=== PATIENT | male | born 1950 | race Caucasian/White ===

== ENCOUNTER → 2016-08-20 | Outpatient (CLI) | payer OTHER ==
[~2016-08-20] MED LIST: ALBUTEROL17 GM INH; ALBUTEROL20 ml INH; BUSPAR15 M1 PO; FISH OIL 1,2001 EACH PO; FLUTICASONE P15.8 ML; IRON SUPPLEMENT1 TAB PO; LISINOPRIL-HCTZ1 T21 PO; MULTI-VITAMIN1 EAC1 PO; NAPROSYN500 MG PO; NORVASC10 MG PO; PAMELOR50 MG PO; PRAVASTATIN SOD40 MG PO; PRILOSEC20 M1 PO; SINGULAIR PO; VIAGRA PO
--- NOTE | ~2016-08-20 | CT5 ---
[facility] A Service of [facility] & [facility] RADIOLOGY TEXT RESULTS PATIENT: STEPH CLARK LOCATION: [facility] : 46 UNIT #: [id number] AGE: [address]: Nicholas May MD SEX: M ORDER DR: [id number] [facility] [address] [place], [place] [address] [id number] O MR#: [id number] [facility] #: [id number] NAME: STEPH CLARK : 1950 SEX: M STUDY DATE/TIME: 08/20/2016 8:28 UNIT: [facility] ROOM: STUDY DESCRIPTION: CT Abdomen W Cont Attending Physician: Nicholas May M.D., Ph.D. Referring Physician: Nicholas May M.D., Ph.D. Ordering Physician: Nicholas May M.D., Ph.D. Primary Care Physician: Farrukh Dickens M.D. MEDICAL IMAGING REPORT This report is preliminary unless electronic signature is present EXAM CT abdomen with contrast, 08/20/2016 INDICATION 66-year-old male with a history of lung cancer, cough and congestion for 2 weeks followup. Chemotherapy and radiation therapy for May through July of this year. Observation for suspected malignant neoplasm and active malignancy. TECHNIQUE Contrast-enhanced CT of the abdomen with contrast. Correlation is made with PET CT at an outside facility performed 02/18/2016. This CT exam was performed with one or more of the following radiation dose reduction techniques: automatic exposure control, adjustment of mA and/or kV according to patient size, and iterative reconstruction. FINDINGS CT ABDOMEN: Please see the separately dictated CT chest same date for further details regarding chest findings. Included lung bases demonstrate some atelectasis in the right and left lower lobe with pleural thickening/pleural fluid to a minimal degree in the right lung base. There is emphysema. Aorta demonstrates atherosclerotic change. There is no aneurysm or dissection. The spleen is unremarkable and the right adrenal gland is normal. There is an indeterminate 16 mm nodule in the left adrenal gland. This is unchanged from the prior PET CT but density measurements on both studies preclude classification as a benign adenoma and metastatic disease could present similarly. Attention on followup is recommended. The pancreas and gallbladder are unremarkable. Liver and kidneys unremarkable. Stomach not well distended or evaluated. [facility] A Service of [facility] RADIOLOGY TEXT RESULTS PATIENT: STEPH CLARK LOCATION: [facility] : [birth year] UNIT #: [id number] AGE: [address]: Nicholas May MD SEX: M ORDER DR: Included aspects of the upper pelvis are low abdomen demonstrate partial visualization of surgical change involving the rectosigmoid colon. There is some fluid or soft tissue thickening in the right lower quadrant adjacent to the surgical margin likely postoperative in nature but appearing slightly more prominent than on the prior PET CT and this should be correlated clinically. It is not fully included in the field of view or evaluated. Possibility of inflammatory change of the adjacent small bowel is in the differential in the appropriate clinical context. There is diverticulosis of the colon. No bowel obstruction. Appendix surgically absent by history. Tiny umbilical hernia containing fat only. Osseous structures demonstrate degenerative changes in the thoracolumbar spine. There is grade 1 retrograde listhesis of L5 on S1. No suspicious bone lesion. IMPRESSION 1. No new findings to suggest metastatic disease in the abdomen. Stable indeterminate 16 mm left adrenal nodule. Attention on followup is recommended. 2. Not fully included in the field of view there is some fluid or soft tissue thickening in the right lower quadrant adjacent to operative changes involving the colon. This may reflect sequelae of operative intervention but appears slightly more prominent than the prior PET CT. Sequela of inflammatory change of adjacent small bowel loops in the differential in the appropriate clinical context. 3. Diverticulosis. 4. Please refer to the separately dictated CT chest same date for further details regarding chest findings. Dictated by... Jomar Shelton M.D. THIS IS AN ELECTRONICALLY VERIFIED REPORT Jomar Shelton M.D. at 08/21/2016 7:14 AM Hilaria TD: 08/20/2016 22:30 JOB #: [id number] MEDICAL IMAGING REPORT Page 1 of 1 COPY
--- NOTE | ~2016-08-20 | CT55 ---
[facility] A Service of [facility] RADIOLOGY TEXT RESULTS PATIENT: STEPH CLARK LOCATION: [facility] : 46 UNIT #: [id number] AGE: [address]: Nicholas May MD SEX: M ORDER DR: [id number] [facility] [address] [place], [place] [address] [id number] O MR#: [id number] [facility] #: [id number] NAME: STEPH CLARK : 1950 SEX: M STUDY DATE/TIME: 08/20/2016 8:28 UNIT: [facility] ROOM: STUDY DESCRIPTION: CT Chest W Con Attending Physician: Nicholas May M.D., Ph.D. Referring Physician: Nicholas May M.D., Ph.D. Ordering Physician: Nicholas May M.D., Ph.D. Primary Care Physician: Farrukh Dickens M.D. MEDICAL IMAGING REPORT This report is preliminary unless electronic signature is present EXAM Chest CT with contrast, 08/20/2016. INDICATIONS Lung cancer followup. Observation for suspected malignant neoplasm. Active malignancy. Cough and congestion for 2 weeks. History of colonic resection. Chemotherapy and radiation therapy from May through July of this year. TECHNIQUE Contrast enhanced CT scan of the chest was performed. This CT exam was performed with one or more of the following radiation dose reduction techniques: automatic exposure control, adjustment of mA and/or kV according to patient size, and iterative reconstruction. COMPARISON Correlation is made with PET/CT 02/18/2016 at [address] FINDINGS CT CHEST: Trace pleural fluid/thickening at the right lung base with associated atelectasis. Minimal atelectasis in the left lower lobe. Stable pleural thickening in the posterolateral left upper lobe. No new suspicious pulmonary nodule. There is interstitial prominence in the upper lobe on the right. There is a stellate density in the right lung apex measuring about 7 mm that is unchanged. Imaging features may reflect a treatment focus with associated sequela of radiation therapy. Correlate with history in this regard. Tiny 2 mm micronodule in the subpleural right upper lobe that is unchanged. No new suspicious pulmonary nodule. Included thyroid unremarkable. Small amount of fluid or pericardial thickening near the cardiac apex unchanged. No axillary adenopathy. [facility] A Service of [facility] RADIOLOGY TEXT RESULTS PATIENT: STEPH CLARK LOCATION: [facility] : 46 UNIT #: [id number] AGE: [address]: Nicholas May MD SEX: M ORDER DR: Right paratracheal node measures 9 mm and is unchanged. Subcentimeter AP window and subcarinal nodes unchanged. Aorta demonstrates no aneurysm or dissection. Included upper abdomen demonstrates no acute finding. There is an indeterminate left adrenal nodule measuring 16 mm. It is unchanged from the prior PET/CT but cannot be classified as an adenoma based upon density measurements on either study. Attention on follow up is recommended. Osseous structures demonstrate no suspicious bone lesion. Stable sclerotic lesion in the sternum. Chronic anterior left rib fracture. IMPRESSION 1. No new findings to suggest interval progression of metastatic disease or new metastatic disease in the chest. Nonspecific stellate focus measuring about 7 mm in the right lung apex is unchanged. 2. Micronodule in the subpleural right upper lobe also stable. 3. Stable right paratracheal node measuring just under a centimeter. 4. Indeterminate left adrenal nodule, stable since the prior study. Attention on followup recommended. 5. Chronic left rib fracture. Dictated by... Jomar Shelton M.D. THIS IS AN ELECTRONICALLY VERIFIED REPORT Jomar Shelton M.D. at 08/21/2016 7:13 AM Bessy TD: 08/20/2016 22:17 JOB #: [id number] MEDICAL IMAGING REPORT Page 1 of 1 COPY
[2016-08-20 09:51] LABS: POC - CREATININE 0.71 mg/dL (0.64-1.27); POC - GFR >60.0 mL/min (>60)
== END | disposition home or self-care (01) ==
LOC: CCAT 08:00
PROVIDERS: Internal Medicine Hematology & Oncology
DX: C34.80 Malignant neoplasm of overlapping sites of unspecified bronchus and lung (principal); R91.1 Solitary pulmonary nodule; E27.8 Other specified disorders of adrenal gland; S22.32XD Fracture of one rib, left side, subsequent encounter for fracture with routine healing; K57.30 Diverticulosis of large intestine without perforation or abscess without bleeding
CPT/HCPCS: 71260; 74160; 82565; Q9967